=== PATIENT | female | born 1960 | race Caucasian/White ===

== ENCOUNTER → 2016-06-06 | Outpatient (CLI) | payer BC ==
[~2016-06-06] MED LIST: MULT-1175 PO; NAPR220T61 PO; SUMA100T PO; TRIA10.82 EA NOSTRIL
== END ==
LOC: IMA 13:48
PROVIDERS: ATTEND Physician Assistant
DX: Z12.31 Encounter for screening mammogram for malignant neoplasm of breast (principal); E28.310 Symptomatic premature menopause; Z87.828 Personal history of other (healed) physical injury and trauma
CPT/HCPCS: 77063; 77080; G0202